=== PATIENT | male | born 1955 | race Caucasian/White ===

== ENCOUNTER → 2017-10-06 | Outpatient (CLI) | payer OTHER ==
--- NOTE | 2017-10-06 16:34 | DIAGNOSTIC IMAGING REPORT ---
CHEST 2 VIEWS ROUTINE CLINICAL HISTORY: COUGH dyspnea COMPARISON STUDY: No previous studies for comparison. FINDINGS: The bones soft tissues and hemidiaphragms are normal. The cardiomediastinal silhouette is normal. The lungs are clear. The pulmonary vasculature is normal. IMPRESSION: Negative chest. The above report was generated using voice recognition software. It may contain grammatical, syntax or spelling errors. Electronically signed by: Kapil Jack M.D. 10/06/2017 4:33 PM Dictated Date/Time: 10/06/2017 4:33 PM
== END | disposition home or self-care (01) ==
LOC: C.RAD1850 16:14
PROVIDERS: ATTEND Family Medicine
DX: R05 Cough (principal)